=== PATIENT | male | born 1980 | race African-American/Black ===

== ENCOUNTER 2019-01-05 19:56 | Emergency (ER) | payer OTHER ==
[~2019-01-05] VITALS: Ht 188 cm; Wt 79.4 kg
[~2019-01-05 19:56] MED LIST: NOHOMEMEDICATIONS; NORCO 5-325 TA1 EACH PO; PERCOCET 5-3251 EACH PO
[2019-01-05 20:35] LABS: ABSOLUTE NEUTROPHILS 3.3 thou/uL (1.4-8.2); BASOPHILS 0.8 % (0.0-2.0); EOSINOPHILS 1.1 % (0.0-3.0); HEMATOCRIT 43.9 % (42.0-52.0); HEMOGLOBIN 14.6 gm/dL (14.0-18.0); LYMPHOCYTES 29.1 % (24.0-44.0); MCH 28.7 pg (26.0-34.0); MCHC 33.2 g/dL (28.0-37.0); MCV 86.3 fL (80.0-100.0); MONOCYTES 8.2 % (1.0-8.0); PLATELET COUNT 280 thou/uL (150-400); POLYS 60.8 % (36.0-66.0); RBC 5.09 mil/uL (4.50-6.00); RDW 13.3 % (10.5-14.5); WBC 5.4 thou/uL (4.0-11.0)
[2019-01-05 20:58] LABS: ANION GAP 10 mmol/L (7-16); BUN 11 mg/dL (7-18); CALCIUM 9.4 mg/dL (8.5-10.1); CHLORIDE 102 mmol/L (98-107); CO2 25 mmol/L (21-32); CREATININE 0.9 mg/dL (0.7-1.3); GLUCOSE 99 mg/dL (74-106); POTASSIUM 3.9 mmol/L (3.5-5.1); SODIUM 137 mmol/L (136-145)
[2019-01-05 21:06] LABS: ALBUMIN 4.5 g/dL (3.4-5.0); SGOT 15 U/L (15-37); SGPT 23 U/L (30-65); TOTAL BILIRUBIN 0.4 mg/dL (<0.1-1.0); TROPONIN-I <0.06 ng/mL (<0.06)
[2019-01-05 21:58] VITALS: BP 134/86
--- NOTE | 2019-01-06 07:55 | EKG ---
[place] [address] [facility] [place] [address] ELECTROCARDIOGRAM REPORT Name: ED CHRISTIANSON [facility] [id number] ������������������ Admission: 01/05/19 ������������������ Attend Phys: Discharge: 01/05/19 ������������������ Date of : 80 Report #: [id number] ����������������������������������������������������������������� [id number] THIS REPORT FOR: //name// [facility] ED Test Date: 2019-01-05 Test Time: 20:20:16 Pat Name: ED CHRISTIANSON Department: Room: Gender: Metal Bending Machine Operator: : 1980 Requested By: Anthony Waller Order Number: [id number] MD: Seth Guzman Measurements Intervals [place] Rate: 61 P: 61 OR: 140 QRS: 75 QRSD: 101 T: 54 QT: 396 QTc: 399 Interpretive Statements Sinus rhythm RSR' in V1 or V2, right VCD No previous ECG available for comparison Electronically Signed On 01-06-2019 7:54:50 [employer]UCATION ASSOCIATE by Seth Guzman [email or web address] ��������������������������������������������� <ELECTRONICALLY SIGNED> ���������������������������������������� By: Seth Guzman MD, [facility] ��������������������������������������������� 01/06/19 [id number] 19 19 Seth Guzman MD, FACC /EPI
== END 2019-01-05 21:58 | disposition home or self-care (01) ==
LOC: ER 19:56
PROVIDERS: Emergency Medicine
DX: M62.838 Other muscle spasm (principal); F17.210 Nicotine dependence, cigarettes, uncomplicated

== ENCOUNTER 2019-05-07 08:39 | Emergency (ER) | payer OTHER ==
[~2019-05-07] VITALS: Ht 188 cm; Wt 76.8 kg
[2019-05-07 08:50] VITALS: BP 129/86
== END 2019-05-07 09:49 | disposition home or self-care (01) ==
LOC: ER 08:39
DX: M25.511 Pain in right shoulder (principal); M54.5 Low back pain; F17.210 Nicotine dependence, cigarettes, uncomplicated

== ENCOUNTER 2019-07-03 15:25 | Emergency (ER) | payer OTHER ==
[~2019-07-03] VITALS: Ht 188 cm; Wt 79.4 kg
[2019-07-03 15:25] VITALS: BP 147/91
[2019-07-03] MEDS ORDERED: IBUPROFEN 600600 M1 PO (15:54)
[2019-07-03] MEDS ORDERED: AUGMENTIN 875-1 EACH PO (15:54)
== END 2019-07-03 15:54 | disposition home or self-care (01) ==
LOC: ER 15:25
DX: S51.031A Puncture wound without foreign body of right elbow, initial encounter (principal); F17.210 Nicotine dependence, cigarettes, uncomplicated; W54.0XXA Bitten by dog, initial encounter; Y93.89 Activity, other specified; Y92.89 Other specified places as the place of occurrence of the external cause; Y99.8 Other external cause status